=== PATIENT | female | born 1960 | race Caucasian/White ===

== ENCOUNTER 2017-07-15 08:11 | Emergency (ER) | payer BC ==
[2017-07-15] MEDS ORDERED: Famotidine 20 MG/2 ML SDV IVPUSH ONE (08:32)
[2017-07-15] MEDS ORDERED: Ondansetron 4 MG/2 ML SDV IVPUSH ONE ×2 (08:32→10:28)
[2017-07-15] MEDS ORDERED: Sodium Chloride 0.9% 10 ML Syringe FLUSH PRN (08:32)
[2017-07-15] MEDS ORDERED: HYDROmorphone 0.5 MG/0.5 ML Syringe IVPUSH ONE (08:33)
[2017-07-15] MEDS ORDERED: Metoclopramide 10 MG/2 ML SDV IVPUSH ONE (09:07)
--- NOTE | 2017-07-15 09:56 | EDM.PDOC ---
ED HPI GENERAL MEDICAL PROBLEM - General Chief Complaint: Abdominal Pain Stated Complaint: VOMITING/STOMACH CRAMPS Time Seen by Provider: 07/15/17 08:26 Source of Information: Reports: Patient, RN Notes Reviewed - History of Present Illness INITIAL COMMENTS - FREE TEXT/NARRATIVE: 56 year old female comes in with severe nausea, vomiting, upper abd cramps that started about 4 hrs ago, continues to feel very nauseated. No major diarrhea. chills but no fever. No hx of gallbladder problems. NO chest pain or difficulty breathing. Middle Abdominal Pain Score (Numeric/FACES): 8 - Related Data Allergies Allergy/AdvReac Type Severity Reaction Status Date / Time shellfish derived Allergy Facial Verified 07/15/17 08:20 Swelling Home Meds: Home Meds DULoxetine [Cymbalta] 20 mg PO DAILY 07/15/17 [History] Ondansetron [Zofran ODT] 4 mg PO Q6H PRN #7 tab.dis 07/15/17 [Rx] Past Medical History - Past Health History Medical/Surgical History: Denies Medical/Surgical History Neurological History: Reports: Headaches, Chronic Psychiatric History: Reports: Depression Social & Family History - Tobacco Use Smoking Status *Q: Never Smoker Second Hand Smoke Exposure: No - Caffeine Use Caffeine Use: Reports: None - Alcohol Use Days Per Week of Alcohol Use: 7 Number of Drinks Per Day: 1 Total Drinks Per Week: 7 - Recreational Drug Use Recreational Drug Use: No ED ROS GENERAL - Review of Systems Review Of Systems: See Below Constitutional: Reports: Chills, Malaise. Denies: Fever HEENT: Denies: Throat Pain, Vertigo Respiratory: Denies: Shortness of Breath, Pleuritic Chest Pain Cardiovascular: Denies: Chest Pain GI/Abdominal: Reports: Abdominal Pain, Nausea, Vomiting. Denies: Diarrhea Musculoskeletal: Reports: Other (generalized achiness) Skin: Reports: No Symptoms Neurological: Reports: Dizziness ED EXAM, GI/ABD - Physical Exam Exam: See Below General Appearance: Alert, Moderate Distress Eyes: Bilateral: Normal Appearance Throat/Mouth: Normal Inspection, Normal Oropharynx Head: Atraumatic. No: Facial Swelling Neck: Supple, Full Range of Motion Respiratory/Chest: No Respiratory Distress, Lungs Clear, Normal Breath Sounds Cardiovascular: Regular Rate, Rhythm GI/Abdominal Exam: Soft, Tender (upper mid abd). No: Guarding, Rebound Back Exam: No: CVA Tenderness (L), CVA Tenderness (R) Extremities: Normal Inspection, Normal Range of Motion Neurological: Alert, Oriented, No Motor/Sensory Deficits Skin Exam: Warm, Dry, Normal Color Course - Vital Signs Last Recorded V/S: Last Vital Signs Temp 96.7 F 07/15/17 08:18 Pulse 55 L 07/15/17 08:18 Resp 16 07/15/17 08:18 BP 144/58 H 07/15/17 08:18 Pulse Ox 99 07/15/17 08:18 - Orders/Labs/Meds Orders: Active Orders 24 hr Category Date Time Status Peripheral IV Care [RC] . DIRECTED Care 07/15/17 08:33 Active Sodium Chloride 0.9% [Normal Saline] 1,000 ml Med 07/15/17 10:00 Active IV ONETIME Sodium Chloride 0.9% [Saline Flush] Med 07/15/17 08:32 Active 10 ml FLUSH ASDIRECTED PRN Peripheral IV Insertion Adult [OM.PC] Stat Oth 07/15/17 08:32 Ordered Medication Orders Sodium Chloride (Normal Saline) 1,000 mls @ 999 mls/hr IV ONETIME [facility] Last Admin: 07/15/17 10:00 Dose: 999 mls/hr Sodium Chloride (Saline Flush) 10 ml FLUSH ASDIRECTED PRN PRN Reason: Keep Vein Open Last Admin: 07/15/17 08:37 Dose: 10 ml Labs: Laboratory Tests 07/15/17 07/15/17 Range/Units 08:20 08:20 WBC 11.74 H (3.98-10.04) K/mm3 RBC 4.84 (3.98-5.22) M/mm3 Hgb 14.7 (11.2-15.7) gm/L Hct 42.7 (34.1-44.9) % MCV 88.2 (79.4-94.8) fl MCH 30.4 (25.6-32.2) pg MCHC 34.4 (32.2-35.5) g/dl RDW Std Deviation 41.6 (36.4-46.3) fL Plt Count 305 (182-369) K/mm3 MPV 10.2 (9.4-12.3) fl Neut % (Auto) 87.2 H (34.0-71.1) % Lymph % (Auto) 9.6 L (19.3-51.7) % [place] % (Auto) 2.5 L (4.7-12.5) % Eos % (Auto) 0.2 L (0.7-5.8) Baso % (Auto) 0.3 (0.1-1.2) % Neut # (Auto) 10.25 H (1.56-6.13) K/mm3 Lymph # (Auto) 1.13 L (1.18-3.74) K/mm3 [place] # (Auto) 0.29 (0.24-0.36) K/mm3 Eos # (Auto) 0.02 L (0.04-0.36) K/mm3 Baso # (Auto) 0.03 (0.01-0.08) K/mm3 Manual Slide Review Abnormal smear Sodium 139 (136-145) mEq/L Potassium 3.7 (3.5-5.1) mEq/L Chloride 102 (98-107) mEq/L Carbon Dioxide 25 (21-32) mEq/L Anion Gap 15.7 H (5-15) BUN 17 (7-18) mg/dL Creatinine 0.8 (0.55-1.02) mg/dL Est Cr Clr Drug Dosing 55.06 mL/min Estimated GFR (MDRD) > 60 (>60) mL/min BUN/Creatinine Ratio 21.3 H (14-18) Glucose 142 H (74-106) mg/dL Calcium 9.7 (8.5-10.1) mg/dL Total Bilirubin 0.5 (0.2-1.0) mg/dL AST 28 (15-37) U/L ALT 31 (14-59) U/L Alkaline Phosphatase 56 (46-116) U/L Total Protein 7.8 (6.4-8.2) g/dl Albumin 4.3 (3.4-5.0) g/dl Globulin 3.5 gm/dL Albumin/Globulin Ratio 1.2 (1-2) Lipase 177 (73-393) U/L Meds: Medications Generic Name Dose Route Start Last Admin Trade Name Freq PRN Reason Stop Dose Admin Sodium Chloride 1,000 mls @ 999 mls/hr 07/15/17 10:00 07/15/17 10:00 Normal Saline IV 999 mls/hr ONETIME FELICIA Administration Sodium Chloride 10 ml 07/15/17 08:32 07/15/17 08:37 Saline Flush FLUSH 10 ml ASDIRECTED PRN Administration Keep Vein Open Discontinued Medications Generic Name Dose Route Start Last Admin Trade Name Ramón PRN Reason Stop Dose Admin Famotidine 20 mg 07/15/17 08:32 07/15/17 08:37 Pepcid IVPUSH 07/15/17 08:33 20 mg ONETIME ONE Administration Hydromorphone HCl 0.5 mg 07/15/17 08:33 07/15/17 08:40 Dilaudid IVPUSH 07/15/17 08:34 0.5 mg ONETIME ONE Administration Hydromorphone HCl 0.5 mg 07/15/17 10:28 07/15/17 10:36 Dilaudid IVPUSH 07/15/17 10:29 0.5 mg ONETIME ONE Administration Metoclopramide HCl 5 mg 07/15/17 09:07 07/15/17 09:12 Reglan IVPUSH 07/15/17 09:08 5 mg ONETIME ONE Administration Ondansetron HCl 4 mg 07/15/17 08:32 07/15/17 08:36 Zofran IVPUSH 07/15/17 08:33 4 mg ONETIME ONE Administration Ondansetron HCl 4 mg 07/15/17 10:28 07/15/17 10:36 Zofran IVPUSH 07/15/17 10:29 4 mg ONETIME ONE Administration Ondansetron HCl Confirm 07/15/17 10:37 Zofran Administered 07/15/17 10:38 Dose 4 mg .ROUTE .STK-MED ONE - Re-Assessments/Exams Free Text/Narrative Re-Assessment/Exam: 07/15/17 10:06 labs did show that she is moderately dehydrated, have given 1 liter of fluid, meds, has not voided or feel the need to void, will give 1 more liter NS. Departure - Departure Time of Disposition: 11:30 Disposition: Home, Self-Care 01 Condition: Fair Clinical Impression: Abdominal pain Qualifiers: Abdominal location: upper abdomen, unspecified Qualified Code(s): R10.10 - Upper abdominal pain, unspecified Vomiting Qualifiers: Vomiting type: unspecified Vomiting Intractability: non-intractable Nausea presence: with nausea Qualified Code(s): R11.2 - Nausea with vomiting, unspecified - Discharge Information Prescriptions: Ondansetron [Zofran ODT] 4 mg PO Q6H PRN #7 tab.dis PRN Reason: Nausea/Vomiting Referrals: Genesis Cintron PA [Primary Care Provider] - Forms: ED Department Discharge Additional Instructions: Rest, clear liquids until this evening or until symptoms of nausea vomiting abdominal pain have resolved, Zofran every 6-8 hours if needed for further nausea or vomiting, follow-up clinic in 1-2 days if not getting back to normal as expected or return to ED if symptoms worsening in any way - My Orders Last 24 Hours: My Active Orders 07/15/17 08:32 Sodium Chloride 0.9% [Saline Flush] 10 ml FLUSH ASDIRECTED PRN Peripheral IV Insertion Adult [OM.PC] Stat 07/15/17 08:33 Peripheral IV Care [RC] . DIRECTED 07/15/17 10:00 Sodium Chloride 0.9% [Normal Saline] 1,000 ml IV ONETIME - Assessment/Plan Last 24 Hours: My Active Orders 07/15/17 08:32 Sodium Chloride 0.9% [Saline Flush] 10 ml FLUSH ASDIRECTED PRN Peripheral IV Insertion Adult [OM.PC] Stat 07/15/17 08:33 Peripheral IV Care [RC] . DIRECTED 07/15/17 10:00 Sodium Chloride 0.9% [Normal Saline] 1,000 ml IV ONETIME
[2017-07-15] MEDS ORDERED: Sodium Chloride 0.9% 1,000 ML IV SCH (10:00)
[2017-07-15] MEDS ORDERED: HYDROmorphone 1 MG/ML Syringe IVPUSH ONE (10:28)
[2017-07-15] MEDS ORDERED: Ondansetron 4 MG/2 ML SDV ONE (10:37)
[2017-07-15 11:43] VITALS: BP 118/59
== END 2017-07-15 11:43 | disposition home or self-care (01) ==
LOC: JD.ED 08:11
DX: R10.10 Upper abdominal pain, unspecified (principal); R11.2 Nausea with vomiting, unspecified; Z91.013 Allergy to seafood; Z79.899 Other long term (current) drug therapy
CPT/HCPCS: 36415; 80053; 83690; 85025; 96361; 96374; 96375; 96376; 99284; J1170; J2405; J2765; J7040; J7050; 99283

== ENCOUNTER 2017-07-16 16:30 | Inpatient (IN) | payer BC ==
--- NOTE | 2017-07-16 15:55 | PCM.PREANE ---
Preanesthetic Assessment - Procedure Proposed Procedure: Lap Appy - Anesthesia/Transfusion/Family Hx Anesthesia History: Prior Anesthesia Without Reaction Family History of Anesthesia Reaction: No Transfusion History: No Prior Transfusion(s) - Review of Systems General: No Symptoms Gastrointestinal: Abdominal Pain, Nausea, Vomiting (last vomit 0900) Neurological: Headache Other: Reports: None, Depression, Anxiety - Physical Assessment NPO Status Date: 07/16/17 NPO Status Time: 13:00 Pulse: 79 O2 Sat by Pulse Oximetry: 93 Respiratory Rate: 16 Blood Pressure: 131/71 Temperature: 37.2 C Height: 1.5 m Weight: 68.039 kg ASA Class: 2E Mental Status: Alert & Oriented x3 Airway Class: Mallampati = 2 Dentition: Reports: Normal Dentition Thyro-Mental Finger Breadths: 3 Mouth Opening Finger Breadths: 3 ROM/Head Extension: Full Lungs: Clear to Auscultation, Normal Respiratory Effort Cardiovascular: Regular Rate, Regular Rhythm - Allergies Allergies/Adverse Reactions: Allergies Allergy/AdvReac Type Severity Reaction Status Date / Time shellfish derived Allergy Facial Verified 07/15/17 08:20 Swelling - Blood Blood Available: No Product(s) Available: None - Anesthesia Plan Pre-Op Medication Ordered: None - Acknowledgements Anesthesia Type Planned: General Anesthesia Pt an Appropriate Candidate for the Planned Anesthesia: Yes Alternatives and Risks of Anesthesia Discussed w Pt/Guardian: Yes Pt/Guardian Understands and Agrees with Anesthesia Plan: Yes PreAnesthesia Questionnaire - Past Health History Medical/Surgical History: Denies Medical/Surgical History Neurological History: Reports: Headaches, Chronic Psychiatric History: Reports: Depression - SUBSTANCE USE Smoking Status *Q: Never Smoker Second Hand Smoke Exposure: No Days Per Week of Alcohol Use: 7 Number of Drinks Per Day: 1 Total Drinks Per Week: 7 Recreational Drug Use History: No - HOME MEDS Home Medications: Home Meds DULoxetine [Cymbalta] 20 mg PO DAILY 07/15/17 [History] Ondansetron [Zofran ODT] 4 mg PO Q6H PRN #7 tab.dis 07/15/17 [Rx] - CURRENT (IN HOUSE) MEDS Current Meds: Current Medications Lactated Ringer's (Ringers, Lactated) 1,000 mls @ 125 mls/hr IV ASDIRECTED FELICIA Lidocaine/Sodium Bicarbonate (Buffered Lidocaine 1% In Ns 8.4%) 0.25 ml IV ONETIME PRN PRN Reason: Prior to IV Start Sodium Chloride (Saline Flush) 10 ml FLUSH ASDIRECTED PRN PRN Reason: Keep Vein Open
[~2017-07-16 16:30] MED LIST: Bupivacaine 0.5%/EPINEPHrine 1:200,000 50 ML MDV ONE; Lactated Ringers 1,000 ML IV SCH; Lidocaine 1% with EPINEPHrine 1:100,000 20 ML MDV ONE; Lidocaine 1%/Sod Bicarbonate in NS 8.4% 1 ML Syringe IV PRN; Midazolam 1 MG/ML 2 ML SDV ONE; Propofol 200 MG/20 ML SDV ONE; Sodium Chloride 0.9% 10 ML Syringe FLUSH PRN; fentaNYL 250 MCG/5 ML SDV ONE
[2017-07-16] MEDS ORDERED: Rocuronium 50 MG/5 ML Vial ONE (16:40)
[2017-07-16] MEDS ORDERED: Lidocaine 1% 4 ML ONE (16:40)
[2017-07-16] MEDS ORDERED: Dexamethasone 4 MG/ML 5 ML MDV ONE (16:40)
[2017-07-16] MEDS ORDERED: Ondansetron 4 MG/2 ML SDV ONE (16:40)
[2017-07-16] MEDS ORDERED: diphenhydrAMINE 50 MG/ML SDV IVPUSH PRN (16:55)
[2017-07-16] MEDS ORDERED: HYDROmorphone 0.5 MG/0.5 ML Syringe IVPUSH PRN (16:55)
[2017-07-16] MEDS ORDERED: fentaNYL 100 MCG/2 ML SDV IVPUSH PRN (16:55)
[2017-07-16] MEDS ORDERED: Promethazine 6.25 MG in Sodium Chloride 0.9% 50 ML IV PRN (16:55)
[2017-07-16] MEDS ORDERED: Meperidine PF 50 MG/ML Syringe IVPUSH PRN (16:55)
[2017-07-16] MEDS ORDERED: Ondansetron 4 MG/2 ML SDV IVPUSH PRN (17:28)
[2017-07-16] MEDS ORDERED: Ketorolac 30 MG/ML SDV ONE (17:30)
[2017-07-16] MEDS ORDERED: Glycopyrrolate 0.2 MG/ML SDV ONE (17:30)
[2017-07-16] MEDS ORDERED: Lactated Ringers 1,000 ML IV SCH (17:30)
[2017-07-16] MEDS ORDERED: Neostigmine Methylsulfate 10 MG/10 ML MDV ONE (17:30)
--- NOTE | 2017-07-16 17:36 | PCM.OPNOTE ---
- General Post-Op/Procedure Note Date of Surgery/Procedure: 07/16/17 Operative Procedure(s): Laparoscopic appendectomy Findings: Gangrenous appendix with heavy exudate and with small posterior perforation with turbid fluid in the pelvis Pre Op Diagnosis: Acute appendicitis Post-Op Diagnosis: Perforated acute appendicitis Anesthesia Technique: General ET Tube, Local Primary Surgeon: Dakota Montoya Pathology: Appendix EBL in mLs: 3 Complications: None Condition: Good Free Text/Narrative:: After adequate general endotracheal tube anesthesia was obtained the patient was positioned and prepped for a laparoscopic appendectomy. A supraumbilical incision was made followed by insertion of a 12 mm camera port. CO2 pneumoperitoneum was obtained. Explration revealed dense omental adhesions from the umbilicus down to the Pfannenstiel incision in the pelvis. I placed a 5 mm port in the right upper quadrant and then one just right lateral to the midline in the suprapubic region. Exploration revealed findings above. I used the suction novelty balloon assembler and packer to dissect away the appendix away from the small bowel and the surrounding tissues. I sharply and bluntly mobilized the cecum along the white line. A window was made in the appendiceal mesentery with scissors. I used several staple loads to fire across the base and the appendiceal mesentery to separate the appendix from the cecum. The specimen was placed in a bag and removed through the umbilicus. I irrigated out the right lower quadrant and right upper quadrant and pelvis with saline. The surgical site was hemostatic and there was no obvious bowel injury. I decannulated the abdomen under direct vision with no bleeding from the port sites. A [id number] 0 Vicryl was used to close the umbilical incision. Vicryl was used to close the subcutaneous tissues and skin. Steri-Strips and gauze were used for the dressing. There were no procedural complications. Photographs were taken for the patient and for the record.
--- NOTE | 2017-07-16 17:39 | PCM.POSTAN ---
POST ANESTHESIA ASSESSMENT - MENTAL STATUS Mental Status: Alert, Oriented - VITAL SIGNS Pulse Rate: 86 SaO2: 95 Resp Rate: 10 Blood Pressure: 107/48 Temperature: 36.3 C - RESPIRATORY Respiratory Status: Respiratory Rate WNL, Airway Patent, O2 Saturation Stable - CARDIOVASCULAR CV Status: Pulse Rate WNL, Blood Pressure Stable - GASTROINTESTINAL GI Status: No Symptoms - PAIN Pain Score: 0 - POST OP HYDRATION Hydration Status: Adequate & Stable
[2017-07-16] MEDS: Ketorolac 15 MG/ML SDV IVPUSH SCH (22:49)
[2017-07-16] MEDS ORDERED: cefOXitin 2 GM in Sodium Chloride 0.9% 100 ML IV SCH (23:00)
[2017-07-16] MEDS: cefOXitin 2 GM in Premix Bag 1 BAG IV SCH (23:04)
[2017-07-17] MEDS: Ketorolac 15 MG/ML SDV IVPUSH SCH ×3 (04:29→17:18)
[2017-07-17] MEDS: cefOXitin 2 GM in Premix Bag 1 BAG IV SCH ×4 (04:39→23:13)
[2017-07-17] MEDS ORDERED: Sodium Chloride 0.9% 10 ML Syringe FLUSH PRN (10:44)
--- NOTE | 2017-07-17 10:45 | PCM.SURGPN ---
- General Info Date of Service: 07/17/17 POD#: 1 Functional Status: Reports: Pain Controlled, Tolerating Diet, Ambulating, Urinating - Review of Systems Gastrointestinal: Reports: Abdominal Pain (At the umbilical port site) - Patient Data Vitals - Most Recent: Last Vital Signs Temp 36.5 C 07/17/17 08:43 Pulse 66 07/17/17 08:43 Resp 16 07/17/17 08:43 BP 102/58 L 07/17/17 08:43 Pulse Ox 91 L 07/17/17 10:12 Weight - Most Recent: 69.763 kg I&O - Last 24 Hours: Intake & Output 07/16/17 07/17/17 07/17/17 22:59 06:59 14:59 Intake Total 400 631 Output Total 1100 Balance 400 -469 Med Orders - Current: Current Medications Hydromorphone HCl (Dilaudid) 0.5 mg IVPUSH Q1H PRN PRN Reason: Pain (severe 7-10) Lactated Ringer's (Ringers, Lactated) 1,000 mls @ 125 mls/hr IV ASDIRECTED [facility] Last Admin: 07/17/17 08:45 Dose: 125 mls/hr Cefoxitin Sodium 2 gm/ Premix 50 mls @ 100 mls/hr IV Q6H [facility] Last Admin: 07/17/17 04:39 Dose: 100 mls/hr Ketorolac Tromethamine (Toradol) 15 mg IVPUSH Q6H [facility] Stop: 07/17/17 17:01 Last Admin: 07/17/17 04:29 Dose: 15 mg Ondansetron HCl (Zofran) 4 mg IVPUSH Q6H PRN PRN Reason: Nausea/Vomiting Discontinued Medications Bupivacaine HCl/Epinephrine Bitart (Marcaine 0.5%/Epinephrine 1:200,000) Confirm Administered Dose 50 ml .ROUTE .STK-MED ONE Stop: 07/16/17 15:51 Last Admin: 07/16/17 16:32 Dose: 50 ml Dexamethasone (Dexamethasone) Confirm Administered Dose 20 mg .ROUTE .STK-MED ONE Stop: 07/16/17 16:41 Diphenhydramine HCl (Benadryl) 25 mg IVPUSH Q6H PRN PRN Reason: Pruritis Fentanyl (Sublimaze) Confirm Administered Dose 250 mcg .ROUTE .STK-MED ONE Stop: 07/16/17 16:20 Fentanyl (Sublimaze) 50 mcg IVPUSH Q5M PRN PRN Reason: Pain Glycopyrrolate (Robinul) Confirm Administered Dose 0.4 mg .ROUTE .STK-MED ONE Stop: 07/16/17 17:31 Hydromorphone HCl (Dilaudid) 0.5 mg IVPUSH Q15M PRN PRN Reason: Pain (severe 7-10) Lactated Ringer's (Ringers, Lactated) 1,000 mls @ 125 mls/hr IV ASDIRECTED [facility] Last Admin: 07/16/17 23:00 Dose: 125 mls/hr Lidocaine HCl (Xylocaine-Mpf 1%) Confirm Administered Dose 4 mls @ as directed .ROUTE .STK-MED ONE Stop: 07/16/17 16:41 Promethazine HCl 6.25 mg/ (Sodium Chloride) 50.25 mls @ 100 mls/hr IV ONETIME PRN PRN Reason: Nausea/Vomiting Cefoxitin Sodium (Mefoxin In Dextrose,Iso-Osm 2 Gm/50 Ml) Confirm Administered Dose 50 mls @ as directed .ROUTE .STK-MED ONE Stop: 07/16/17 17:15 Cefoxitin Sodium 2 gm/ Sodium (Chloride) 100 mls @ 200 mls/hr IV Q6H [facility] Ketorolac Tromethamine (Toradol) Confirm Administered Dose 30 mg .ROUTE .STK- MED ONE Stop: 07/16/17 17:31 Lidocaine/Epinephrine (Xylocaine 1% With Epinephrine 1:100,000) Confirm Administered Dose 20 ml .ROUTE .STK-MED ONE Stop: 07/16/17 15:51 Last Admin: 07/16/17 16:32 Dose: 20 ml Lidocaine/Sodium Bicarbonate (Buffered Lidocaine 1% In Ns 8.4%) 0.25 ml IV ONETIME PRN PRN Reason: Prior to IV Start Meperidine HCl (Demerol) 12.5 mg IVPUSH ONETIME PRN PRN Reason: Shivering Midazolam HCl (Versed 1 Mg/Ml) Confirm Administered Dose 2 mg .ROUTE .STK-MED ONE Stop: 07/16/17 16:20 Neostigmine Methylsulfate (Neostigmine Methylsulfate) Confirm Administered Dose 10 mg .ROUTE .STK-MED ONE Stop: 07/16/17 17:31 Ondansetron HCl (Zofran) Confirm Administered Dose 4 mg .ROUTE .STK-MED ONE Stop: 07/16/17 16:41 Propofol (Diprivan 20 Ml) Confirm Administered Dose 200 mg .ROUTE .STK-MED ONE Stop: 07/16/17 16:20 Rocuronium Moosic (Zemuron) Confirm Administered Dose 50 mg .ROUTE .STK-MED ONE Stop: 07/16/17 16:41 Sodium Chloride (Saline Flush) 10 ml FLUSH ASDIRECTED PRN PRN Reason: Keep Vein Open - Exam Wound/Incisions: Dressing Dry and Intact - Problem List Review Problem List Initiated/Reviewed/Updated: Yes - My Orders Last 24 Hours: Active Orders 24 hr Category Date Time Status Patient Status [ADT] Routine ADT 07/16/17 17:28 Active Ambulate [RC] ASDIRECTED Care 07/16/17 17:28 Active Antiembolic Devices [RC] PER UNIT ROUTINE Care 07/17/17 07:51 Active Head of Bed Elevation [RC] ASDIRECTED Care 07/16/17 17:29 Active Notify Provider [RC] ASDIRECTED Care 07/16/17 16:55 Active Oxygen Therapy [RC] PRN Care 07/16/17 17:28 Active Up ad Dorina [RC] ASDIRECTED Care 07/16/17 17:28 Active Up to Chair [RC] ASDIRECTED Care 07/16/17 17:28 Active Verify Patient Consent Obtain [RC] ASDIRECTED Care 07/16/17 15:49 Active Vital Signs [RC] Q6HR Care 07/16/17 17:28 Active Full Liquid Diet [DIET] Diet 07/16/17 Dinner Active HYDROmorphone [Dilaudid] Med 07/16/17 17:28 Active 0.5 mg IVPUSH Q1H PRN Ketorolac [Toradol] Med 07/16/17 23:00 Active 15 mg IVPUSH Q6H Lactated Ringers [Ringers, Lactated] 1,000 ml Med 07/16/17 17:30 Active IV ASDIRECTED Ondansetron [Zofran] Med 07/16/17 17:28 Active 4 mg IVPUSH Q6H PRN Sodium Chloride 0.9% [Saline Flush] Med 07/17/17 10:44 Ordered 10 ml FLUSH ASDIRECTED PRN cefOXitin [Mefoxin in Dextrose,Iso-Osm 2 GM/50 ML] 2 gm Med 07/16/17 23:00 Active Premix Bag 1 bag IV Q6H Convert IV to Saline Lock [OM.PC] Routine Oth 07/17/17 10:44 Ordered Medication Administration Instruction [OM.PC] Routine Oth 07/16/17 15:49 Ordered Peripheral IV Insertion Adult [OM.PC] Routine Oth 07/16/17 15:49 Ordered SCD [Sequential Compression Device] [OM.PC] Routine Oth 07/17/17 07:51 Ordered Resuscitation Status Routine Resus Stat 07/16/17 17:28 Ordered Medication Orders Hydromorphone HCl (Dilaudid) 0.5 mg IVPUSH Q1H PRN PRN Reason: Pain (severe 7-10) Lactated Ringer's (Ringers, Lactated) 1,000 mls @ 125 mls/hr IV ASDIRECTED [facility] Last Admin: 07/17/17 08:45 Dose: 125 mls/hr Cefoxitin Sodium 2 gm/ Premix 50 mls @ 100 mls/hr IV Q6H [facility] Last Admin: 07/17/17 04:39 Dose: 100 mls/hr Infusion: 07/16/17 23:34 Dose: 100 mls/hr Admin: 07/16/17 23:04 Dose: 100 mls/hr Ketorolac Tromethamine (Toradol) 15 mg IVPUSH Q6H [facility] Stop: 07/17/17 17:01 Last Admin: 07/17/17 04:29 Dose: 15 mg Admin: 07/16/17 22:49 Dose: 15 mg Ondansetron HCl (Zofran) 4 mg IVPUSH Q6H PRN PRN Reason: Nausea/Vomiting - Assessment Assessment (Free Text/Narrative):: Doing well - Plan Plan (Free Text/Narrative):: IV antibiotics for several days.
[2017-07-18] MEDS: HYDROmorphone 0.5 MG/0.5 ML Syringe IVPUSH PRN ×2 (03:59→08:54)
[2017-07-18] MEDS: cefOXitin 2 GM in Premix Bag 1 BAG IV SCH ×4 (03:59→22:09)
[2017-07-18] MEDS ORDERED: Ondansetron 4 MG Tab.DIS PO PRN (06:49)
--- NOTE | 2017-07-18 06:51 | PCM.SURGPN ---
- General Info Date of Service: 07/18/17 POD#: 2 Functional Status: Reports: Pain Controlled, Tolerating Diet, Ambulating, Urinating - Review of Systems Gastrointestinal: Reports: Abdominal Pain (At the umbilical port site but better than yesterday) - Patient Data Vitals - Most Recent: Last Vital Signs Temp 36.4 C 07/17/17 19:26 Pulse 76 07/17/17 19:26 Resp 12 07/17/17 19:26 BP 114/70 07/17/17 19:26 Pulse Ox 91 L 07/17/17 19:26 Weight - Most Recent: 70.035 kg I&O - Last 24 Hours: Intake & Output 07/17/17 07/17/17 07/18/17 14:59 22:59 06:59 Intake Total 1890 400 Output Total 450 Balance 1890 -50 Med Orders - Current: Current Medications Hydromorphone HCl (Dilaudid) 0.5 mg IVPUSH Q1H PRN PRN Reason: Pain (severe 7-10) Last Admin: 07/18/17 03:59 Dose: 0.5 mg Cefoxitin Sodium 2 gm/ Premix 50 mls @ 100 mls/hr IV Q6H [facility] Last Admin: 07/18/17 03:59 Dose: 100 mls/hr Ondansetron HCl (Zofran) 4 mg IVPUSH Q6H PRN PRN Reason: Nausea/Vomiting Sodium Chloride (Saline Flush) 10 ml FLUSH ASDIRECTED PRN PRN Reason: Keep Vein Open Discontinued Medications Bupivacaine HCl/Epinephrine Bitart (Marcaine 0.5%/Epinephrine 1:200,000) Confirm Administered Dose 50 ml .ROUTE .STK-MED ONE Stop: 07/16/17 15:51 Last Admin: 07/16/17 16:32 Dose: 50 ml Dexamethasone (Dexamethasone) Confirm Administered Dose 20 mg .ROUTE .STK-MED ONE Stop: 07/16/17 16:41 Diphenhydramine HCl (Benadryl) 25 mg IVPUSH Q6H PRN PRN Reason: Pruritis Fentanyl (Sublimaze) Confirm Administered Dose 250 mcg .ROUTE .STK-MED ONE Stop: 07/16/17 16:20 Fentanyl (Sublimaze) 50 mcg IVPUSH Q5M PRN PRN Reason: Pain Glycopyrrolate (Robinul) Confirm Administered Dose 0.4 mg .ROUTE .STK-MED ONE Stop: 07/16/17 17:31 Hydromorphone HCl (Dilaudid) 0.5 mg IVPUSH Q15M PRN PRN Reason: Pain (severe 7-10) Lactated Ringer's (Ringers, Lactated) 1,000 mls @ 125 mls/hr IV ASDIRECTED [facility] Last Admin: 07/16/17 23:00 Dose: 125 mls/hr Lidocaine HCl (Xylocaine-Mpf 1%) Confirm Administered Dose 4 mls @ as directed .ROUTE .STK-MED ONE Stop: 07/16/17 16:41 Promethazine HCl 6.25 mg/ (Sodium Chloride) 50.25 mls @ 100 mls/hr IV ONETIME PRN PRN Reason: Nausea/Vomiting Cefoxitin Sodium (Mefoxin In Dextrose,Iso-Osm 2 Gm/50 Ml) Confirm Administered Dose 50 mls @ as directed .ROUTE .STK-MED ONE Stop: 07/16/17 17:15 Cefoxitin Sodium 2 gm/ Sodium (Chloride) 100 mls @ 200 mls/hr IV Q6H [facility] Lactated Ringer's (Ringers, Lactated) 1,000 mls @ 125 mls/hr IV ASDIRECTED [facility] Last Admin: 07/17/17 08:45 Dose: 125 mls/hr Ketorolac Tromethamine (Toradol) Confirm Administered Dose 30 mg .ROUTE .STK- MED ONE Stop: 07/16/17 17:31 Ketorolac Tromethamine (Toradol) 15 mg IVPUSH Q6H [facility] Stop: 07/17/17 17:01 Last Admin: 07/17/17 17:18 Dose: 15 mg Lidocaine/Epinephrine (Xylocaine 1% With Epinephrine 1:100,000) Confirm Administered Dose 20 ml .ROUTE .STK-MED ONE Stop: 07/16/17 15:51 Last Admin: 07/16/17 16:32 Dose: 20 ml Lidocaine/Sodium Bicarbonate (Buffered Lidocaine 1% In Ns 8.4%) 0.25 ml IV ONETIME PRN PRN Reason: Prior to IV Start Meperidine HCl (Demerol) 12.5 mg IVPUSH ONETIME PRN PRN Reason: Shivering Midazolam HCl (Versed 1 Mg/Ml) Confirm Administered Dose 2 mg .ROUTE .STK-MED ONE Stop: 07/16/17 16:20 Neostigmine Methylsulfate (Neostigmine Methylsulfate) Confirm Administered Dose 10 mg .ROUTE .STK-MED ONE Stop: 07/16/17 17:31 Ondansetron HCl (Zofran) Confirm Administered Dose 4 mg .ROUTE .STK-MED ONE Stop: 07/16/17 16:41 Propofol (Diprivan 20 Ml) Confirm Administered Dose 200 mg .ROUTE .STK-MED ONE Stop: 07/16/17 16:20 Rocuronium [place] (Zemuron) Confirm Administered Dose 50 mg .ROUTE .STK-MED ONE Stop: 07/16/17 16:41 Sodium Chloride (Saline Flush) 10 ml FLUSH ASDIRECTED PRN PRN Reason: Keep Vein Open - Exam Wound/Incisions: Dressing Dry and Intact General: Alert, Oriented, Cooperative, No Acute Distress GI/Abdominal Exam: Soft, Non-Tender - Problem List Review Problem List Initiated/Reviewed/Updated: Yes - My Orders Last 24 Hours: Active Orders 24 hr Category Date Time Status Antiembolic Devices [RC] PER UNIT ROUTINE Care 07/17/17 07:51 Active May Shower [RC] ASDIRECTED Care 07/18/17 06:50 Ordered Regular Diet [DIET] Diet 07/18/17 Breakfast Ordered DULoxetine [Cymbalta] Med 07/18/17 09:00 Ordered 20 mg PO DAILY Ondansetron [Zofran ODT] Med 07/18/17 06:49 Ordered 4 mg PO Q6H PRN Sodium Chloride 0.9% [Saline Flush] Med 07/17/17 10:44 Active 10 ml FLUSH ASDIRECTED PRN Convert IV to Saline Lock [OM.PC] Routine Oth 07/17/17 10:44 Ordered SCD [Sequential Compression Device] [OM.PC] Routine Oth 07/17/17 07:51 Ordered Medication Orders Hydromorphone HCl (Dilaudid) 0.5 mg IVPUSH Q1H PRN PRN Reason: Pain (severe 7-10) Last Admin: 07/18/17 03:59 Dose: 0.5 mg Cefoxitin Sodium 2 gm/ Premix 50 mls @ 100 mls/hr IV Q6H [facility] Last Admin: 07/18/17 03:59 Dose: 100 mls/hr Infusion: 07/17/17 23:43 Dose: 100 mls/hr Admin: 07/17/17 23:13 Dose: 100 mls/hr Infusion: 07/17/17 17:48 Dose: 100 mls/hr Admin: 07/17/17 17:18 Dose: 100 mls/hr Infusion: 07/17/17 11:12 Dose: 100 mls/hr Admin: 07/17/17 10:42 Dose: 100 mls/hr Infusion: 07/17/17 05:09 Dose: 100 mls/hr Admin: 07/17/17 04:39 Dose: 100 mls/hr Infusion: 07/16/17 23:34 Dose: 100 mls/hr Admin: 07/16/17 23:04 Dose: 100 mls/hr Ondansetron HCl (Zofran) 4 mg IVPUSH Q6H PRN PRN Reason: Nausea/Vomiting Sodium Chloride (Saline Flush) 10 ml FLUSH ASDIRECTED PRN PRN Reason: Keep Vein Open - Assessment Assessment (Free Text/Narrative):: Doing well - Plan Plan (Free Text/Narrative):: Advance diet.
[2017-07-18] MEDS: DULoxetine 20 MG Cap PO SCH (08:54)
[2017-07-18] MEDS: Acetaminophen/oxyCODONE 325-5 MG Tab PO PRN ×2 (17:21→22:09)
[2017-07-19] MEDS: Acetaminophen/oxyCODONE 325-5 MG Tab PO PRN ×3 (05:13→19:13)
[2017-07-19] MEDS: cefOXitin 2 GM in Premix Bag 1 BAG IV SCH ×4 (05:14→23:52)
--- NOTE | 2017-07-19 07:55 | PCM.SURGPN ---
- General Info Date of Service: 07/19/17 Functional Status: Reports: Pain Controlled (Percocets), Tolerating Diet ( Tolerating a regular diet), Ambulating, Urinating - Review of Systems Gastrointestinal: Reports: Abdominal Pain (Umbilical site mild), Flatus, Other ( Bowel movements) - Patient Data Vitals - Most Recent: Last Vital Signs Temp 36.7 C 07/19/17 05:52 Pulse 71 07/19/17 05:52 Resp 18 07/19/17 05:52 BP 131/84 07/19/17 05:52 Pulse Ox 92 L 07/19/17 05:52 Weight - Most Recent: 71.668 kg I&O - Last 24 Hours: Intake & Output 07/18/17 07/19/17 07/19/17 22:59 06:59 14:59 Intake Total 1090 550 Output Total 400 850 Balance 690 -300 Lab Results Last 24 Hrs: Laboratory Results - last 24 hr 07/18/17 Range/Units 09:50 WBC 7.21 (3.98-10.04) K/mm3 RBC 4.04 (3.98-5.22) M/mm3 Hgb 12.4 (11.2-15.7) gm/L Hct 36.9 (34.1-44.9) % MCV 91.3 (79.4-94.8) fl MCH 30.7 (25.6-32.2) pg MCHC 33.6 (32.2-35.5) g/dl RDW Std Deviation 44.0 (36.4-46.3) fL Plt Count 208 (182-369) K/mm3 MPV 10.3 (9.4-12.3) fl Neut % (Auto) 75.7 H (34.0-71.1) % Lymph % (Auto) 13.5 L (19.3-51.7) % [place] % (Auto) 9.7 (4.7-12.5) % Eos % (Auto) 0.7 (0.7-5.8) Baso % (Auto) 0.3 (0.1-1.2) % Neut # (Auto) 5.46 (1.56-6.13) K/mm3 Lymph # (Auto) 0.97 L (1.18-3.74) K/mm3 [place] # (Auto) 0.70 H (0.24-0.36) K/mm3 Eos # (Auto) 0.05 (0.04-0.36) K/mm3 Baso # (Auto) 0.02 (0.01-0.08) K/mm3 Med Orders - Current: Current Medications Duloxetine HCl (Cymbalta) 20 mg PO DAILY [facility] Last Admin: 07/18/17 08:54 Dose: 20 mg Hydromorphone HCl (Dilaudid) 0.5 mg IVPUSH Q1H PRN PRN Reason: Pain (severe 7-10) Last Admin: 07/18/17 08:54 Dose: 0.5 mg Cefoxitin Sodium 2 gm/ Premix 50 mls @ 100 mls/hr IV Q6H [facility] Last Admin: 07/19/17 05:14 Dose: 100 mls/hr Ondansetron HCl (Zofran) 4 mg IVPUSH Q6H PRN PRN Reason: Nausea/Vomiting Ondansetron HCl (Zofran Odt) 4 mg PO Q6H PRN PRN Reason: Nausea/Vomiting Oxycodone/Acetaminophen (Percocet 325-5 Mg) 2 tab PO Q4H PRN PRN Reason: Pain Last Admin: 07/19/17 05:13 Dose: 2 tab Sodium Chloride (Saline Flush) 10 ml FLUSH ASDIRECTED PRN PRN Reason: Keep Vein Open Discontinued Medications Bupivacaine HCl/Epinephrine Bitart (Marcaine 0.5%/Epinephrine 1:200,000) Confirm Administered Dose 50 ml .ROUTE .STK-MED ONE Stop: 07/16/17 15:51 Last Admin: 07/16/17 16:32 Dose: 10 ml Dexamethasone (Dexamethasone) Confirm Administered Dose 20 mg .ROUTE .STK-MED ONE Stop: 07/16/17 16:41 Diphenhydramine HCl (Benadryl) 25 mg IVPUSH Q6H PRN PRN Reason: Pruritis Fentanyl (Sublimaze) Confirm Administered Dose 250 mcg .ROUTE .STK-MED ONE Stop: 07/16/17 16:20 Fentanyl (Sublimaze) 50 mcg IVPUSH Q5M PRN PRN Reason: Pain Glycopyrrolate (Robinul) Confirm Administered Dose 0.4 mg .ROUTE .STK-MED ONE Stop: 07/16/17 17:31 Hydromorphone HCl (Dilaudid) 0.5 mg IVPUSH Q15M PRN PRN Reason: Pain (severe 7-10) Lactated Ringer's (Ringers, Lactated) 1,000 mls @ 125 mls/hr IV ASDIRECTED [facility] Last Admin: 07/16/17 23:00 Dose: 125 mls/hr Lidocaine HCl (Xylocaine-Mpf 1%) Confirm Administered Dose 4 mls @ as directed .ROUTE .STK-MED ONE Stop: 07/16/17 16:41 Promethazine HCl 6.25 mg/ (Sodium Chloride) 50.25 mls @ 100 mls/hr IV ONETIME PRN PRN Reason: Nausea/Vomiting Cefoxitin Sodium (Mefoxin In Dextrose,Iso-Osm 2 Gm/50 Ml) Confirm Administered Dose 50 mls @ as directed .ROUTE .STK-MED ONE Stop: 07/16/17 17:15 Cefoxitin Sodium 2 gm/ Sodium (Chloride) 100 mls @ 200 mls/hr IV Q6H [facility] Lactated Ringer's (Ringers, Lactated) 1,000 mls @ 125 mls/hr IV ASDIRECTED [facility] Last Admin: 07/17/17 08:45 Dose: 125 mls/hr Ketorolac Tromethamine (Toradol) Confirm Administered Dose 30 mg .ROUTE .STK- MED ONE Stop: 07/16/17 17:31 Ketorolac Tromethamine (Toradol) 15 mg IVPUSH Q6H [facility] Stop: 07/17/17 17:01 Last Admin: 07/17/17 17:18 Dose: 15 mg Lidocaine/Epinephrine (Xylocaine 1% With Epinephrine 1:100,000) Confirm Administered Dose 20 ml .ROUTE .STK-MED ONE Stop: 07/16/17 15:51 Last Admin: 07/16/17 16:32 Dose: 10 ml Lidocaine/Sodium Bicarbonate (Buffered Lidocaine 1% In Ns 8.4%) 0.25 ml IV ONETIME PRN PRN Reason: Prior to IV Start Meperidine HCl (Demerol) 12.5 mg IVPUSH ONETIME PRN PRN Reason: Shivering Midazolam HCl (Versed 1 Mg/Ml) Confirm Administered Dose 2 mg .ROUTE .STK-MED ONE Stop: 07/16/17 16:20 Neostigmine Methylsulfate (Neostigmine Methylsulfate) Confirm Administered Dose 10 mg .ROUTE .STK-MED ONE Stop: 07/16/17 17:31 Ondansetron HCl (Zofran) Confirm Administered Dose 4 mg .ROUTE .STK-MED ONE Stop: 07/16/17 16:41 Propofol (Diprivan 20 Ml) Confirm Administered Dose 200 mg .ROUTE .STK-MED ONE Stop: 07/16/17 16:20 Rocuronium [place] (Zemuron) Confirm Administered Dose 50 mg .ROUTE .STK-MED ONE Stop: 07/16/17 16:41 Sodium Chloride (Saline Flush) 10 ml FLUSH ASDIRECTED PRN PRN Reason: Keep Vein Open - Exam Wound/Incisions: Dressing Dry and Intact (Steri-Strips in place) GI/Abdominal Exam: Distended (Mild) - Problem List Review Problem List Initiated/Reviewed/Updated: Yes - My Orders Last 24 Hours: Active Orders 24 hr Category Date Time Status Regular Diet [DIET] Diet 07/18/17 Breakfast Active Acetaminophen/oxyCODONE [Percocet 325-5 MG] Med 07/18/17 09:13 Active 2 tab PO Q4H PRN DULoxetine [Cymbalta] Med 07/18/17 09:00 Active 20 mg PO DAILY Medication Orders Duloxetine HCl (Cymbalta) 20 mg PO DAILY [facility] Last Admin: 07/18/17 08:54 Dose: 20 mg Hydromorphone HCl (Dilaudid) 0.5 mg IVPUSH Q1H PRN PRN Reason: Pain (severe 7-10) Last Admin: 07/18/17 08:54 Dose: 0.5 mg Admin: 07/18/17 03:59 Dose: 0.5 mg Cefoxitin Sodium 2 gm/ Premix 50 mls @ 100 mls/hr IV Q6H [facility] Last Admin: 07/19/17 05:14 Dose: 100 mls/hr Infusion: 07/18/17 22:39 Dose: 100 mls/hr Admin: 07/18/17 22:09 Dose: 100 mls/hr Infusion: 07/18/17 17:52 Dose: 100 mls/hr Admin: 07/18/17 17:22 Dose: 100 mls/hr Infusion: 07/18/17 11:46 Dose: 100 mls/hr Admin: 07/18/17 11:16 Dose: 100 mls/hr Infusion: 07/18/17 04:29 Dose: 100 mls/hr Admin: 07/18/17 03:59 Dose: 100 mls/hr Infusion: 07/17/17 23:43 Dose: 100 mls/hr Admin: 07/17/17 23:13 Dose: 100 mls/hr Infusion: 07/17/17 17:48 Dose: 100 mls/hr Admin: 07/17/17 17:18 Dose: 100 mls/hr Infusion: 07/17/17 11:12 Dose: 100 mls/hr Admin: 07/17/17 10:42 Dose: 100 mls/hr Infusion: 07/17/17 05:09 Dose: 100 mls/hr Admin: 07/17/17 04:39 Dose: 100 mls/hr Infusion: 07/16/17 23:34 Dose: 100 mls/hr Admin: 07/16/17 23:04 Dose: 100 mls/hr Ondansetron HCl (Zofran) 4 mg IVPUSH Q6H PRN PRN Reason: Nausea/Vomiting Ondansetron HCl (Zofran Odt) 4 mg PO Q6H PRN PRN Reason: Nausea/Vomiting Oxycodone/Acetaminophen (Percocet 325-5 Mg) 2 tab PO Q4H PRN PRN Reason: Pain Last Admin: 07/19/17 05:13 Dose: 2 tab Admin: 07/18/17 22:09 Dose: 2 tab Admin: 07/18/17 17:21 Dose: 2 tab Sodium Chloride (Saline Flush) 10 ml FLUSH ASDIRECTED PRN PRN Reason: Keep Vein Open - Assessment Assessment (Free Text/Narrative):: Doing well. White count normal. - Plan Plan (Free Text/Narrative):: Discontinue SCDs. Plan discharge tomorrow.
[2017-07-19] MEDS: DULoxetine 20 MG Cap PO SCH (08:38)
[2017-07-20] MEDS: Acetaminophen/oxyCODONE 325-5 MG Tab PO PRN (01:03)
[2017-07-20] MEDS: cefOXitin 2 GM in Premix Bag 1 BAG IV SCH ×2 (05:16→10:41)
[2017-07-20] MEDS: DULoxetine 20 MG Cap PO SCH (08:54)
--- NOTE | 2017-07-20 09:21 | PCM.SURGPN ---
- General Info Date of Service: 07/20/17 Functional Status: Reports: Pain Controlled, Tolerating Diet, Ambulating, Urinating - Review of Systems Gastrointestinal: Reports: Abdominal Pain (Incisional umbilical discomfort) - Patient Data Vitals - Most Recent: Last Vital Signs Temp 36.7 C 07/19/17 16:26 Pulse 69 07/19/17 16:26 Resp 16 07/19/17 16:26 BP 134/77 07/19/17 18:30 Pulse Ox 93 L 07/19/17 16:26 Weight - Most Recent: 70.171 kg I&O - Last 24 Hours: Intake & Output 07/19/17 07/20/17 07/20/17 22:59 06:59 14:59 Intake Total 1100 500 Output Total 700 1850 Balance 400 -1350 Med Orders - Current: Current Medications Duloxetine HCl (Cymbalta) 20 mg PO DAILY [facility] Last Admin: 07/20/17 08:54 Dose: 20 mg Hydromorphone HCl (Dilaudid) 0.5 mg IVPUSH Q1H PRN PRN Reason: Pain (severe 7-10) Last Admin: 07/18/17 08:54 Dose: 0.5 mg Cefoxitin Sodium 2 gm/ Premix 50 mls @ 100 mls/hr IV Q6H [facility] Last Admin: 07/20/17 05:16 Dose: 100 mls/hr Ondansetron HCl (Zofran) 4 mg IVPUSH Q6H PRN PRN Reason: Nausea/Vomiting Ondansetron HCl (Zofran Odt) 4 mg PO Q6H PRN PRN Reason: Nausea/Vomiting Oxycodone/Acetaminophen (Percocet 325-5 Mg) 2 tab PO Q4H PRN PRN Reason: Pain Last Admin: 07/20/17 01:03 Dose: 2 tab Sodium Chloride (Saline Flush) 10 ml FLUSH ASDIRECTED PRN PRN Reason: Keep Vein Open Discontinued Medications Bupivacaine HCl/Epinephrine Bitart (Marcaine 0.5%/Epinephrine 1:200,000) Confirm Administered Dose 50 ml .ROUTE .STK-MED ONE Stop: 07/16/17 15:51 Last Admin: 07/16/17 16:32 Dose: 10 ml Dexamethasone (Dexamethasone) Confirm Administered Dose 20 mg .ROUTE .STK-MED ONE Stop: 07/16/17 16:41 Diphenhydramine HCl (Benadryl) 25 mg IVPUSH Q6H PRN PRN Reason: Pruritis Fentanyl (Sublimaze) Confirm Administered Dose 250 mcg .ROUTE .STK-MED ONE Stop: 07/16/17 16:20 Fentanyl (Sublimaze) 50 mcg IVPUSH Q5M PRN PRN Reason: Pain Glycopyrrolate (Robinul) Confirm Administered Dose 0.4 mg .ROUTE .STK-MED ONE Stop: 07/16/17 17:31 Hydromorphone HCl (Dilaudid) 0.5 mg IVPUSH Q15M PRN PRN Reason: Pain (severe 7-10) Lactated Ringer's (Ringers, Lactated) 1,000 mls @ 125 mls/hr IV ASDIRECTED [facility] Last Admin: 07/16/17 23:00 Dose: 125 mls/hr Lidocaine HCl (Xylocaine-Mpf 1%) Confirm Administered Dose 4 mls @ as directed .ROUTE .ST-MED ONE Stop: 07/16/17 16:41 Promethazine HCl 6.25 mg/ (Sodium Chloride) 50.25 mls @ 100 mls/hr IV ONETIME PRN PRN Reason: Nausea/Vomiting Cefoxitin Sodium (Mefoxin In Dextrose,Iso-Osm 2 Gm/50 Ml) Confirm Administered Dose 50 mls @ as directed .ROUTE .STK-MED ONE Stop: 07/16/17 17:15 Cefoxitin Sodium 2 gm/ Sodium (Chloride) 100 mls @ 200 mls/hr IV Q6H [facility] Lactated Ringer's (Ringers, Lactated) 1,000 mls @ 125 mls/hr IV ASDIRECTED [facility] Last Admin: 07/17/17 08:45 Dose: 125 mls/hr Ketorolac Tromethamine (Toradol) Confirm Administered Dose 30 mg .ROUTE .STK- MED ONE Stop: 07/16/17 17:31 Ketorolac Tromethamine (Toradol) 15 mg IVPUSH Q6H [facility] Stop: 07/17/17 17:01 Last Admin: 07/17/17 17:18 Dose: 15 mg Lidocaine/Epinephrine (Xylocaine 1% With Epinephrine 1:100,000) Confirm Administered Dose 20 ml .ROUTE .STK-MED ONE Stop: 07/16/17 15:51 Last Admin: 07/16/17 16:32 Dose: 10 ml Lidocaine/Sodium Bicarbonate (Buffered Lidocaine 1% In Ns 8.4%) 0.25 ml IV ONETIME PRN PRN Reason: Prior to IV Start Meperidine HCl (Demerol) 12.5 mg IVPUSH ONETIME PRN PRN Reason: Shivering Midazolam HCl (Versed 1 Mg/Ml) Confirm Administered Dose 2 mg .ROUTE .STK-MED ONE Stop: 07/16/17 16:20 Neostigmine Methylsulfate (Neostigmine Methylsulfate) Confirm Administered Dose 10 mg .ROUTE .STK-MED ONE Stop: 07/16/17 17:31 Ondansetron HCl (Zofran) Confirm Administered Dose 4 mg .ROUTE .STK-MED ONE Stop: 07/16/17 16:41 Propofol (Diprivan 20 Ml) Confirm Administered Dose 200 mg .ROUTE .STK-MED ONE Stop: 07/16/17 16:20 Rocuronium [place] (Zemuron) Confirm Administered Dose 50 mg .ROUTE .STK-MED ONE Stop: 07/16/17 16:41 Sodium Chloride (Saline Flush) 10 ml FLUSH ASDIRECTED PRN PRN Reason: Keep Vein Open - Exam Wound/Incisions: Dressing Dry and Intact, No Drainage GI/Abdominal Exam: Soft, Non-Tender, No Distention (Much less than yesterday) - Problem List & Annotations (1) Acute gangrenous appendicitis SNOMED Code(s): 72301492 Code(s): K35.80 - UNSPECIFIED ACUTE APPENDICITIS Status: Resolved Priority: High Current Visit: Yes - Problem List Review Problem List Initiated/Reviewed/Updated: Yes - My Orders Last 24 Hours: Active Orders 24 hr Category Date Time Status Ready for Discharge [RC] PER UNIT ROUTINE Care 07/20/17 09:19 Ordered Medication Orders Duloxetine HCl (Cymbalta) 20 mg PO DAILY [facility] Last Admin: 07/20/17 08:54 Dose: 20 mg Admin: 07/19/17 08:38 Dose: Not Given Admin: 07/18/17 08:54 Dose: 20 mg Hydromorphone HCl (Dilaudid) 0.5 mg IVPUSH Q1H PRN PRN Reason: Pain (severe 7-10) Last Admin: 07/18/17 08:54 Dose: 0.5 mg Admin: 07/18/17 03:59 Dose: 0.5 mg Cefoxitin Sodium 2 gm/ Premix 50 mls @ 100 mls/hr IV Q6H [facility] Last Admin: 07/20/17 05:16 Dose: 100 mls/hr Admin: 07/19/17 23:52 Dose: 100 mls/hr Infusion: 07/19/17 17:34 Dose: 100 mls/hr Admin: 07/19/17 17:04 Dose: 100 mls/hr Infusion: 07/19/17 11:48 Dose: 100 mls/hr Admin: 07/19/17 11:18 Dose: 100 mls/hr Infusion: 07/19/17 05:44 Dose: 100 mls/hr Admin: 07/19/17 05:14 Dose: 100 mls/hr Infusion: 07/18/17 22:39 Dose: 100 mls/hr Admin: 07/18/17 22:09 Dose: 100 mls/hr Infusion: 07/18/17 17:52 Dose: 100 mls/hr Admin: 07/18/17 17:22 Dose: 100 mls/hr Infusion: 07/18/17 11:46 Dose: 100 mls/hr Admin: 07/18/17 11:16 Dose: 100 mls/hr Infusion: 07/18/17 04:29 Dose: 100 mls/hr Admin: 07/18/17 03:59 Dose: 100 mls/hr Infusion: 07/17/17 23:43 Dose: 100 mls/hr Admin: 07/17/17 23:13 Dose: 100 mls/hr Infusion: 07/17/17 17:48 Dose: 100 mls/hr Admin: 07/17/17 17:18 Dose: 100 mls/hr Infusion: 07/17/17 11:12 Dose: 100 mls/hr Admin: 07/17/17 10:42 Dose: 100 mls/hr Infusion: 07/17/17 05:09 Dose: 100 mls/hr Admin: 07/17/17 04:39 Dose: 100 mls/hr Infusion: 07/16/17 23:34 Dose: 100 mls/hr Admin: 07/16/17 23:04 Dose: 100 mls/hr Ondansetron HCl (Zofran) 4 mg IVPUSH Q6H PRN PRN Reason: Nausea/Vomiting Ondansetron HCl (Zofran Odt) 4 mg PO Q6H PRN PRN Reason: Nausea/Vomiting Oxycodone/Acetaminophen (Percocet 325-5 Mg) 2 tab PO Q4H PRN PRN Reason: Pain Last Admin: 07/20/17 01:03 Dose: 2 tab Admin: 07/19/17 19:13 Dose: 2 tab Admin: 07/19/17 13:10 Dose: 2 tab Admin: 07/19/17 05:13 Dose: 2 tab Admin: 07/18/17 22:09 Dose: 2 tab Admin: 07/18/17 17:21 Dose: 2 tab Sodium Chloride (Saline Flush) 10 ml FLUSH ASDIRECTED PRN PRN Reason: Keep Vein Open - Assessment Assessment (Free Text/Narrative):: Ready for discharge. - Plan Plan (Free Text/Narrative):: Discharge today on 5 days of antibiotics. Bactrim and Flagyl. Tylenol with codeine for pain. Discharge instructions were verbally provided to the patient. I asked her to call me at any time if there are concerns or questions between discharge and her follow-up visit.
--- NOTE | 2017-07-20 09:22 | PCM.DCSUM1 ---
Discharge Summary - Hospital Course Free Text/Narrative:: Uncomplicated postoperative course during administration of IV antibiotics. - Discharge Data Discharge Date: 07/20/17 Discharge Disposition: Home, Self-Care 01 Condition: Good - Discharge Diagnosis/Problem(s) (1) Acute gangrenous appendicitis SNOMED Code(s): 11562308 ICD Code: K35.80 - UNSPECIFIED ACUTE APPENDICITIS Status: Resolved Priority: High Current Visit: Yes - Patient Summary/Data Operative Procedure(s) Performed: Laparoscopic appendectomy Complications: None Labs Pending at D/C: None - Patient Instructions Diet: Usual Diet as Tolerated Activity: As Tolerated, Rest and Relax Today Driving: May Drive Today Showering/Bathing: May Shower Wound/Incision Care: Keep Operative Site/Wound Site Clean and Dry Notify Provider of: Fever, Drainage, Nausea and/or Vomiting - Discharge Plan Home Medications: Home Meds DULoxetine [Cymbalta] 20 mg PO DAILY 07/15/17 [History] Ondansetron [Zofran ODT] 4 mg PO Q6H PRN #7 tab.dis 07/15/17 [Rx] Patient Handouts: Laparoscopic Appendectomy, Adult, Care After, [id number], Appendicitis, [id number] Referrals: Dakota Montoya MD [Physician] - 07/25/17 (Routine postoperative visit) - Discharge Summary/Plan Comment DC Time >30 min.: No Discharge Summary/Plan Comment: Routine postoperative instructions were provided to the patient. I'll see her in one week. - Patient Data Vitals - Most Recent: Last Vital Signs Temp 36.7 C 07/19/17 16:26 Pulse 69 07/19/17 16:26 Resp 16 07/19/17 16:26 BP 134/77 07/19/17 18:30 Pulse Ox 93 L 07/19/17 16:26 Weight - Most Recent: 70.171 kg I&O - Last 24 hours: Intake & Output 07/19/17 07/20/17 07/20/17 22:59 06:59 14:59 Intake Total 1100 500 Output Total 700 1850 Balance 400 -1350 Med Orders - Current: Current Medications Duloxetine HCl (Cymbalta) 20 mg PO DAILY FELICIA Last Admin: 07/20/17 08:54 Dose: 20 mg Hydromorphone HCl (Dilaudid) 0.5 mg IVPUSH Q1H PRN PRN Reason: Pain (severe 7-10) Last Admin: 07/18/17 08:54 Dose: 0.5 mg Cefoxitin Sodium 2 gm/ Premix 50 mls @ 100 mls/hr IV Q6H [facility] Last Admin: 07/20/17 05:16 Dose: 100 mls/hr Ondansetron HCl (Zofran) 4 mg IVPUSH Q6H PRN PRN Reason: Nausea/Vomiting Ondansetron HCl (Zofran Odt) 4 mg PO Q6H PRN PRN Reason: Nausea/Vomiting Oxycodone/Acetaminophen (Percocet 325-5 Mg) 2 tab PO Q4H PRN PRN Reason: Pain Last Admin: 07/20/17 01:03 Dose: 2 tab Sodium Chloride (Saline Flush) 10 ml FLUSH ASDIRECTED PRN PRN Reason: Keep Vein Open Discontinued Medications Bupivacaine HCl/Epinephrine Bitart (Marcaine 0.5%/Epinephrine 1:200,000) Confirm Administered Dose 50 ml .ROUTE .STK-MED ONE Stop: 07/16/17 15:51 Last Admin: 07/16/17 16:32 Dose: 10 ml Dexamethasone (Dexamethasone) Confirm Administered Dose 20 mg .ROUTE .STK-MED ONE Stop: 07/16/17 16:41 Diphenhydramine HCl (Benadryl) 25 mg IVPUSH Q6H PRN PRN Reason: Pruritis Fentanyl (Sublimaze) Confirm Administered Dose 250 mcg .ROUTE .STK-MED ONE Stop: 07/16/17 16:20 Fentanyl (Sublimaze) 50 mcg IVPUSH Q5M PRN PRN Reason: Pain Glycopyrrolate (Robinul) Confirm Administered Dose 0.4 mg .ROUTE .STK-MED ONE Stop: 07/16/17 17:31 Hydromorphone HCl (Dilaudid) 0.5 mg IVPUSH Q15M PRN PRN Reason: Pain (severe 7-10) Lactated Ringer's (Ringers, Lactated) 1,000 mls @ 125 mls/hr IV ASDIRECTED FELICIA Last Admin: 07/16/17 23:00 Dose: 125 mls/hr Lidocaine HCl (Xylocaine-Mpf 1%) Confirm Administered Dose 4 mls @ as directed .ROUTE .STK-MED ONE Stop: 07/16/17 16:41 Promethazine HCl 6.25 mg/ (Sodium Chloride) 50.25 mls @ 100 mls/hr IV ONETIME PRN PRN Reason: Nausea/Vomiting Cefoxitin Sodium (Mefoxin In Dextrose,Iso-Osm 2 Gm/50 Ml) Confirm Administered Dose 50 mls @ as directed .ROUTE .STK-MED ONE Stop: 07/16/17 17:15 Cefoxitin Sodium 2 gm/ Sodium (Chloride) 100 mls @ 200 mls/hr IV Q6H [facility] Lactated Ringer's (Ringers, Lactated) 1,000 mls @ 125 mls/hr IV ASDIRECTED [facility] Last Admin: 07/17/17 08:45 Dose: 125 mls/hr Ketorolac Tromethamine (Toradol) Confirm Administered Dose 30 mg .ROUTE .STK- MED ONE Stop: 07/16/17 17:31 Ketorolac Tromethamine (Toradol) 15 mg IVPUSH Q6H [facility] Stop: 07/17/17 17:01 Last Admin: 07/17/17 17:18 Dose: 15 mg Lidocaine/Epinephrine (Xylocaine 1% With Epinephrine 1:100,000) Confirm Administered Dose 20 ml .ROUTE .STK-MED ONE Stop: 07/16/17 15:51 Last Admin: 07/16/17 16:32 Dose: 10 ml Lidocaine/Sodium Bicarbonate (Buffered Lidocaine 1% In Ns 8.4%) 0.25 ml IV ONETIME PRN PRN Reason: Prior to IV Start Meperidine HCl (Demerol) 12.5 mg IVPUSH ONETIME PRN PRN Reason: Shivering Midazolam HCl (Versed 1 Mg/Ml) Confirm Administered Dose 2 mg .ROUTE .STK-MED ONE Stop: 07/16/17 16:20 Neostigmine Methylsulfate (Neostigmine Methylsulfate) Confirm Administered Dose 10 mg .ROUTE .STK-MED ONE Stop: 07/16/17 17:31 Ondansetron HCl (Zofran) Confirm Administered Dose 4 mg .ROUTE .STK-MED ONE Stop: 07/16/17 16:41 Propofol (Diprivan 20 Ml) Confirm Administered Dose 200 mg .ROUTE .STK-MED ONE Stop: 07/16/17 16:20 Rocuronium Crescent (Zemuron) Confirm Administered Dose 50 mg .ROUTE .STK-MED ONE Stop: 07/16/17 16:41 Sodium Chloride (Saline Flush) 10 ml FLUSH ASDIRECTED PRN PRN Reason: Keep Vein Open *Q Meaningful Use (DIS) - VTE *Q VTE Criteria *Q: - Stroke *Q Stroke Criteria *Q: - AMI *Q AMI Criteria *Q:
[2017-07-20 09:34] VITALS: BP 112/67
== END 2017-07-20 11:33 | disposition home or self-care (01) | DRG 225 ==
LOC: JD.MS 18:52
PROVIDERS: ADMIT Surgery; ATTEND Surgery
PROC: 0DTJ4ZZ Resection of Appendix, Percutaneous Endoscopic Approach (ICD-10-PCS; principal; 2017-07-16)
DX: K35.2 Acute appendicitis with generalized peritonitis (principal); E86.0 Dehydration; F41.8 Other specified anxiety disorders; Z79.899 Other long term (current) drug therapy; Z01.818 Encounter for other preprocedural examination; R11.2 Nausea with vomiting, unspecified
CPT/HCPCS: 00840; 36415; 74177; 74177-26; 85025; A9270-GY; J0694; J1100; J1170; J1885; J2250; J2405; J2704; J2710; J3010; J3490; J7050; J7120; Q9963; Q9967

== ENCOUNTER 2022-07-15 07:40 | Emergency (ER) | payer BC ==
[2022-07-15] MEDS ORDERED: Ondansetron 4 MG/2 ML SDV IVPUSH ONE (08:10)
[2022-07-15] MEDS ORDERED: Ketorolac 30 MG/ML SDV IVPUSH ONE (08:10)
[2022-07-15] MEDS ORDERED: Sodium Chloride 0.9% 1,000 ML IV ONE (08:10)
[2022-07-15] MEDS ORDERED: Sodium Chloride 0.9% 10 ML Syringe FLUSH ONE (09:21)
[2022-07-15] MEDS ORDERED: Iopamidol 612 MG/ML 100 ML Bottle IVPUSH ONE (09:21)
[2022-07-15 12:37] VITALS: BP 125/65; PULSE 65
== END 2022-07-15 12:34 | disposition home or self-care (01) ==
LOC: JD.ED 07:40
DX: N20.0 Calculus of kidney (principal); N23 Unspecified renal colic; Z91.013 Allergy to seafood; Z79.899 Other long term (current) drug therapy; Z90.49 Acquired absence of other specified parts of digestive tract; Z90.710 Acquired absence of both cervix and uterus
CPT/HCPCS: 36415; 74177; 80053; 81001; 83690; 85007; 85027; 96361; 96374; 96375; 99284; J1885; J2405; J3490; J7030; Q9967